=== PATIENT | female | born 1995 | race Caucasian/White ===

== ENCOUNTER 2019-11-13 02:05 | Observation (INO) | payer BC, SELFPAY ==
[2019-11-13 02:05] VITALS: BMI 39.9
[2019-11-13 03:00] VITALS: BP 122/80; PULSE 101
[2019-11-13 03:15] VITALS: BP 133/92; PULSE 97
--- NOTE | 2019-11-13 03:32 | OBADM ---
This patient, Danii Barrera, admitted to the OB room Labor/Delivery/Recovery 109 for observation. Patient/family oriented to hospital policies and general routines including ID bracelet, bed and alarms, visiting hours, pain management, procedures, bathroom and other care routines, personal items, smoking policy, room service/diet, and visiting hours. Patient/Family are encouraged to report perceived risks to care and to ask questions if they do not understand what they are told or what they should do.
--- NOTE | 2019-11-28 12:37 | PM.OBTRLD ---
OB - Triage/Final Diagnosis Visit Information Reason for evaluation: threatened labor
== END 2019-11-13 03:40 | disposition home or self-care (01) ==
PROVIDERS: Admitting Provider Obstetrics & Gynecology; Visit Provider Obstetrics & Gynecology
DX: O47.1 False labor at or after 37 completed weeks of gestation (principal); Z3A.37 37 weeks gestation of pregnancy
CPT/HCPCS: G0378; G0379

== ENCOUNTER 2019-11-13 06:04 | Inpatient (IN) | payer BC, SELFPAY ==
[2019-11-13] VITALS (64 sets, daily range): BP systolic 111–155; BP diastolic 52–120; PULSE 100–147; RESP 13–20; TEMP 36.2–37.3; O2SAT 97–100; BMI 39.6
--- NOTE | 2019-11-13 06:04 | LDADM ---
This patient, Daini Barrera, was admitted to Labor/Delivery/Recovery 104 on 11/13/19 at 06:04. Plans for labor, pain management and were discussed with patient. Patient/family oriented to hospital policies and general routines including ID bracelet, bed and alarms, visiting hours, pain management, procedures, bathroom and other care routines, personal items, smoking policy, room service/diet and guest tray routines, security routines, and visiting hours. Patient/Family are encouraged to report perceived risks to care and to ask questions if they do not understand what they are told or what they should do. See OBIX for further documentation.
[2019-11-13] MEDS: LACTATED RINGERS 1,000 ML 125 ML IV CONT ×2 (07:40→10:25)
[2019-11-13 07:49] LABS: Basophils Absolute Auto 0.1 K/mm3 (0.0-0.1); Basophils Percent Auto 0.3 % (0.2-1.2); Eosinophils Percent Auto 0.2 % (0-4.4); Hematocrit 39.3 % (37.0-47.0); Hemoglobin 13.2 g/dL (12.0-15.0); Immature Granulocyte Absolute 0.06 K/mm3 (0.00-0.031); Immature Granulocyte Percent A 0.4 % (0-0.5); Immature Platelet Fraction Pct 12.7 % (0.9-11.2); Lymphocytes Absolute Auto 1.49 K/mm3 (0.9-3.2); Mean Corpuscular HGB Conc 33.6 g/dl (32-36); Mean Corpuscular Hemoglobin 28.1 pg (26-34); Mean Corpuscular Volume 83.6 fl (80-100); Mean Platelet Volume 12.2 fl (7.4-10.4); Monocytes Absolute Auto 0.7 K/mm3 (0.1-0.6); Monocytes Percent Auto 4.7 % (2.6-8.5); Neutrophils Absolute Auto 12.6 K/mm3 (1.3-6.7); Neutrophils Percent Auto 84.4 % (45.5-73.1); Platelet Count Result 202 k/mm3 (150-375); Red Cell Distribution Width 13.8 % (11.5-14.5)
--- NOTE | 2019-11-13 08:41 | WPDOBADMIT ---
Obstetrics - Admit Note Admission Note: record reviewed. Additions to the history and/or subsequent changes in the physical findings follow. 24 y/o G1 at 37 6/7 weeks here with contractions. GBS neg. EFW 8#. Comfortable with epidural. AVSS NST reactive TOCO: contractions every 2-4 min ABD soft, nontender, gravid, vertex EXT nontender Cervix 8/100/0. AROM with clear fluid. A: IUP at term with labor. P: Anticipate .
--- NOTE | 2019-11-13 12:40 | PM.OBPNLAB ---
Pain Control Date/time seen: 11/13/19 12:40 Comments: Pain OK. Feeling more pressure. Have started oxytocin for labor augmentation. Pelvic Exam Dilation (cm): 10 Effacement (%): 100 station: -1 Comments: NST reactive TOCO: contractions every 2-3 min Begin pushing.
--- NOTE | 2019-11-13 14:15 | PM.OBPRVD ---
OB - Delivery Note Procedure Delivery date: 11/13/19 Procedure: Induction method: none Delivery augmentation: pitocin Delivery monitor: external FHT and external uterine Route of delivery: Laceration description: Vaginal - 2nd Degree Delivery repair: vicryl (3-0) Specimen: Yes (cord blood) Estimated blood loss (mL): 240 Anesthesia type: Epidural Disposition: PACU Complications: Shoulder dystocia Narrative: Tmyreq-ugzj-yjbx-old primigravida at 37 6/7 weeks gestation who presented to the hospital with complaint of contractions. Labor was diagnosed. She received an epidural for pain control. Amniotomy was performed with return of clear fluid. Her labor progressed and her cervix dilated completely. Labor was augmented using oxytocin intravenously during the 2nd stage of labor. She pushed with good effort and delivered the infant's head to the perineum. A shoulder dystocia was encountered. Traction on the head was avoided. Fundal pressure was avoided. McRobert's maneuver was employed. The posterior (left) shoulder was able to be grasped and rotated in a clockwise fashion, dislodging the anterior shoulder and effecting delivery of the body. The nose and mouth were bulb suctioned. After a delay, the cord was clamped and cut. The infant was handed off the field. Cord blood was collected. The placenta delivered spontaneously and was grossly normal in appearance. The usual 3 vessel cord was noted. A second degree midline perineal laceration was sustained. This was reapproximated using 3 0 Vicryl in the usual layered fashion. Excellent hemostasis resulted as did excellent reapproximation of the normal anatomy. Needle and instrument counts were correct. The patient was taken to recovery room in stable condition. The infant went to the nursery in stable condition. I was present and scrubbed through the entire delivery. [place] Baby Date of : 11/13/19 Time of : 13:52 Weeks of gestation at delivery: 37 gender: Female Weight (pounds): 8 Weight (ounces): 7 presentation: vertex position: Left Occiput Anterior Placenta delivery description: Spontaneous cord vessel description: 3 Vessels score one minute: 8 score five minutes: 9
--- NOTE | 2019-11-13 16:30 | PC.NURSE ---
Patient transferred to post room #292 per wheelchair from labor and delivery. Support person present. Oriented to unit, room, information board, rooming in, admission packet and security measures. Patient verbalizes understanding.
[2019-11-13] MEDS: IBUPROFEN 600 MG TABLET PO (16:48)
[2019-11-13] MEDS: LANOLIN (LANSINOH) 7.5 GM CREAM 1 APPLIC TOPICAL (16:48)
[2019-11-14] MEDS: IBUPROFEN 600 MG TABLET PO ×2 (03:12→11:12)
[2019-11-14 06:00] LABS: Hematocrit 35.5 % (37.0-47.0); Hemoglobin 11.5 g/dL (12.0-15.0)
--- NOTE | 2019-11-14 07:20 | WPDANLDPN2 ---
Anes-Prog Note L&D Date/Time: 11/14/19 07:20 Comfortable throughout: labor and delivery Neuraxial method: epidural Epidural/Spinal procedure site: clean & non-tender Neuro status: Neuro function grossly intact. Cardiovascular status: normal Respiratory status: normal Airway patency: baseline Mental status: baseline Post-Op hydration status: normal Vital Signs: Last Vital Signs Temp 36.8 C 11/13/19 16:35 Pulse 105 H 11/13/19 16:35 Resp 20 11/13/19 16:35 BP 143/84 H 11/13/19 16:35 Pulse Ox 100 11/13/19 08:34 I/O: Intake & Output 11/13/19 11/13/19 11/14/19 15:59 23:59 07:59 Intake Total 2500 Output Total 240 Balance 2260 Post-procedural complaints: none Patient feedback: Patient satisfied with anesthetic care.
[2019-11-14] MEDS: DOCUSATE SODIUM 100 MG CAPSULE PO ×2 (07:43→16:11)
[2019-11-14] MEDS: MULTIVIT/MIN/PREN/FOL AC/IRON TABLET 1 TAB PO (07:43)
[2019-11-14] MEDS: WITCH HAZEL 40 PADS 1 PAD TOPICAL (07:44)
[2019-11-14] MEDS: BENZOCAINE 20% AER SPR (*SP) 56 GM CAN 1 SPRAY TOPICAL (07:44)
[2019-11-14 08:00] VITALS: BP 128/78; PULSE 68; RESP 18; TEMP 36.2; O2SAT 99
[2019-11-14 11:00] LABS: Rapid Plasma Reagin Non-Reactive (NonReactive)
[2019-11-14] MEDS: TETANUS,DIPHTHERIA,AC PERTUSSIS ADULT 0.5 ML (ADACEL) IM (11:10)
--- NOTE | 2019-11-14 15:35 | PC.NURSE ---
Mother called out for observation of feeding. Demonstrated stimulation techniques to wake for feeding. Assisted with infant to breast. Reviewed positioning/alignment in cross cradle, holding breast in U hold and guided asymmetrical latch on. Infant was able to latch correctly. Infant nursed eagerly with steady draws frequent swallowing for burst followed with long pausing. Reviewed signs of a correct latch, effective nursing and suck swallow ratio. was able to maintain latch without discomfort to mother. Advised to stimulate to keep awake and nursing effectively, for increased milk transfer and stimulation for milk supply. Nipple care reviewed. Instructed mother to call out for RN assistance if she is unable to latch for feeding or she has discomfort with nursing. Instructed feeding should be initiated three hours from start of last feeding or if feeding cues are noted before. Mother voiced understanding of information shared. Reviewed feeding cues, frequencies, duration of feedings, feeding elimination flow sheet, and signs of adequate intake. Mother is feeding as required and waking to feed if needed. is currently meeting outcomes for weight, output, jaundice and feeding frequencies. Mother states she feels confident to continue effective at home. Reviewed transition to breast milk, signs of adequate intake, and engorgement/relief. Instructed to call ICP if intake/output less than required. Reviewed regular medications mother is taking. Information provided per Wendy. Reviewed community resources on the [facility] website and in the Mom/Baby guide. Information on outpatient services provided. Mother has no further questions at this time.
--- NOTE | 2019-11-14 17:03 | PC.NURSE ---
Self care and infant care discharge instructions given including follow up visit date and time. Mother verbalized understanding. No questions or concerns verbalized. Very pleasant and cooperative.
--- NOTE | 2019-11-14 17:05 | PM.OBPNVD ---
OB - PN: Subj Subjective Date/time seen: 11/14/19 17:05 Narrative: Pain Ok. Would like to go home. OB - PN: Obj Data Labs CBC & Chem 7: 11/14/19 04:44 Labs: Laboratory Results - last 24 hr 11/13/19 11/14/19 07:43 04:44 Hgb 11.5 L Hct 35.5 L RPR Non-reactive OB - PN A/P Plan Comments: A: PPD#1, doing well. P: Home to f/u 6 weeks. Exam Narrative: Exam Narrative: AVSS ABD soft, nontender, fundus firm EXT nontender
[2019-11-16 10:34] VITALS: BP 136/85; PULSE 119; RESP 18; TEMP 36.7
--- NOTE | 2019-11-29 13:53 | PM.OBDSVD ---
DS: Diagnosis Admitting Diagnosis Admitting Diagnosis: Labor Discharge Diagnosis (1) Term delivered: Code(s): O80 - Encounter for full-term uncomplicated delivery Status: Acute OB - DS: Summary OB Procedures : None OB Procedures Intrapartum: Spontaneous Vag Delivery OB Procedures: : None Discharge Plan Discharge Attending physician on discharge: Jameson Buckner Discharging Clinician: Jameson Buckner Patient Disposition: Home, Self-Care Activity: pelvic rest Diet: regular Discharge Instructions: Call or return if temperature above 100.4? F, increased abdominal pain, increased vaginal bleeding or any new problems. Education: Mom and Baby Guide Given to: Mother Follow-Up: Call your delivering provider's office for an appointment to be seen in: 6 Weeks Mom and baby should come to the [facility] for the follow-up appointment. Appointment Date/Time: November 16, 2019 at 10:00 am What to expect at your follow-up visit: Blood Pressure Check Physical Assessment Call [phone] if you are unable to keep your appointment time. BREAST CARE: 1. Wear a snug supportive bra. 2. For engorgement discomfort: Breast Feeding: A. Apply warm moist washcloths B. Express milk as needed to relieve engorgement C. Wear loose clothing 3. For sore nipples: A. Identify correct latch-on B. Apply warm moist washcloths before and after nursing C. Air dry nipples after nursing D. May apply Lansinoh cream to nipples EPISIOTOMY/PERINEAL CARE: 1. Until bleeding stops, use your leann bottle after urinating 2. Change your pad frequently throughout the day 3. You may take sitz baths several times a day (fill your bathtub with warm water and soak for 20 minutes.) Do NOT bathe in the water 4. No tub baths until seen by your physician - You may shower ACTIVITY: 1. Rest as much as possible. 2. Do not exercise or lift anything heavier than your baby (such as laundry or other children.) 3. Avoid stairs or driving as much as possible. 4. Do not put anything into the vagina. No douching, tampons, or sexual activity until seen by physician. NOTIFY PHYSICIAN IF YOU HAVE ANY QUESTIONS OR IF ANY OF THE FOLLOWING SYMPTOMS OCCUR: 1. If your episiotomy becomes red, swollen, or more painful than what you have experienced in the hospital. 2. If your vaginal bleeding becomes foul smelling. 3. If your vaginal bleeding becomes more heavy than a period or if your bleeding changes from pink to bright red. However, you may pass an occasional walnut-sized clot once or twice for the first week . 4. If you experience a sharp, shooting pain in you calves. 5. If you discover a hard, reddened area on your breast or if you experience flu-like symptoms. DIET: 1. Eat regular, well-balanced meals. 2. Drink plenty of fluids daily. If , drink to thirst. Stand Alone Forms: General Discharge Information Follow-up/Referrals: Jameson Buckner MD [Physician] - 6 Weeks (6 weeks) Discharge Medications: New ibuprofen 600 mg tablet 600 mg PO Q6H PRN (Reason: cramps) Qty: 30 RF: 0 Dermoplast (with menthol) 20-0.5 % Aerosol 1 spray topical PRN PRN (Reason: Perineal Discomfort) RF: 0 simethicone 80 mg Tablet,Chewable 80 mg PO Q2H PRN (Reason: Gas) RF: 0 Mha-W-Crsccs Cream 1 applic topical PRN PRN (Reason: Sore Nipples) RF: 0 Preparation H (Agueda Velasquez) 50 % Pads, Medicated 1 pad topical PRN PRN (Reason: Perineal Discomfort) RF: 0 Continued PNV [id number]-ferrous fumarate-FA [] 28 mg iron- 800 mcg Tablet 1 tablet PO DAILY RF: 0 Date of admission: 11/13/19 06:04 Primary Care Provider: UNKNOWN,DOCTOR Admitting Provider: Jameson Buckner Discharge Date/Time: 11/14/19 17:45 Attending physician on admission: Jameson Buckner
== END 2019-11-14 17:45 | disposition home or self-care (01) | DRG 807 ==
LOC: ANHLDR 14:10 → ANHOB2 16:38
PROVIDERS: Admitting Provider Obstetrics & Gynecology; Visit Provider Obstetrics & Gynecology
DX: O66.0 Obstructed labor due to shoulder dystocia (principal); Z37.0 Single live birth; Z3A.37 37 weeks gestation of pregnancy; O70.1 Second degree perineal laceration during delivery; Z23 Encounter for immunization
CPT/HCPCS: 36415; 85014; 85018; 85025; 86592; 86850; 86900; 86901; 90471; 90686; 90715; A9270; G0008; J2590; J2795; J7120